=== PATIENT | male | born 1985 | race Caucasian/White ===

== ENCOUNTER 2022-08-08 16:46 | Emergency (ER) | payer SELFPAY ==
[2022-08-08 16:50] VITALS: BMI 26.2
[2022-08-08 16:53] VITALS: BP 126/78; PULSE 111; RESP 18; TEMP 37.9; O2SAT 100
--- NOTE | 2022-08-08 17:35 | USR_ITS ---
PROCEDURE INFORMATION: Exam: US Duplex Right Upper Extremity Veins, Limited Exam date and time: 08/08/2022 6:08 PM Age: 37 years old Clinical indication: Pain; Arm, lower; Right; Additional info: Redness swelling TECHNIQUE: Imaging protocol: Real-time duplex ultrasound of the Right Upper Extremity with 2-D henning scale, color Doppler flow and spectral waveform analysis with image documentation. Limited exam focused on the right upper extremity veins. COMPARISON: US soft tissue/extremity [id number] 08/08/2022 6:01 PM FINDINGS: Right deep veins: Unremarkable. Axillary and brachial veins are patent throughout without thrombus. Normal Doppler waveforms. Normal compressibility and/or augmentation response. Visualized internal jugular and subclavian veins are patent. Right superficial veins: Unremarkable. Visualized cephalic and basilic veins are patent without thrombus. Soft tissues: Unremarkable. US/[place] [id number] IMPRESSION: No evidence of deep vein thrombosis.
--- NOTE | 2022-08-08 17:43 | W.ED.EXTPRO ---
HPI - Extremity Problem General: Chief complaint: Extremity Problem,Nontraumatic Stated complaint: Right arm swelling Time Seen by Provider: 08/08/22 17:42 History of Present Illness: Patient comes in for swelling and pain to the right forearm. Patient appears in mild to moderate pain. Patient appears nontoxic. Patient reports that approximately 2 to 3 weeks ago he was seen at a emergency department in [place] and treated for cellulitis in that arm. With Bactrim DS. Patient reports that he had taken the antibiotic for about 10 days and it had almost fully recovered and patient felt that he should be able to resolve on its own. Patient comes in today due to increasing swelling and pain over the last week. Patient does admit to IV drug use. Associated symptoms: Reports fever(s); Deny chest pain Review of Systems Const: Reports: fever(s) and malaise Eyes: Denies: change in vision ENMT: Denies: throat pain Card: Denies: chest pain Resp: Denies: dyspnea GI: Denies: nausea or vomiting Musc: Reports: extremity pain and extremity swelling Physical Exam Const: COMMON NORMALS: alert HENMT: COMMON NORMALS: normocephalic and Normal external nose present HEAD & SCALP: normocephalic NOSE: Normal external nose present Neck/C-Spine: COMMON NORMALS: full ROM and no meningeal signs Resp: COMMON NORMALS: normal respiratory effort and clear to auscultation bilaterally AUSCULTATION: clear to auscultation bilaterally Cardio: COMMON NORMALS: regular rhythm RATE: tachycardic (Mild in the 110s) RHYTHM: regular rhythm GI: COMMON NORMALS: Soft to palpation and non-tender PALPATION: Yes Soft to palpation Extremity: RIGHT UPPER EXTREMITY: Yes lower arm (Significant swelling and tenderness to the right forearm) Neuro: SENSORIUM/ORIENTATION: Yes alert MENINGEAL SIGNS: Yes no meningeal signs Skin: COMMON NORMALS: turgor normal GENERAL SKIN EXAM: turgor normal Procedures Abscess I/D Site: upper extremity Side (if applicable): right Local Anesthetic: lidocaine 1% and with epi Amount of anesthesia used (mL): 4 Technique: incised with #11 blade Amount of fluid expressed (mL): 30 Irrigation: Yes Packing used?: plain (8 cm quarter inch gauze for wick) Course Vital Signs: Vital signs: Vital Signs Temperature 98.4 F 08/08/22 20:07 Pulse Rate 90 08/08/22 20:15 Respiratory Rate 16 08/08/22 20:15 Blood Pressure 120/73 08/08/22 20:15 Pulse Oximetry 98 08/08/22 20:15 Oxygen Delivery Me thod 08/08/22 20:07 MDM - Extremity (Nontraumatic) Medical Decision Making 37-year-old male patient comes in today with abscess to the right forearm. Patient has had abscess in his wrist on the same arm and in the elbow of the same arm. Patient admits to IV drug use. Patient appears nontoxic. Patient does have a mild temperature of 100.2 with some elevation in pulse at 111. Vital signs otherwise are normal. Erythema and redness is localized to the posterior aspect of the forearm with no full circumferential swelling or redness. Differential diagnosis includes cellulitis, abscess, DVT, sepsis. No signs of serious illness as noted. Ultrasound did not indicate DVT but did note a 5 cm linear abscess. Under local anesthetic and medications for pain a 3 cm incision was made and a good result of purulent drainage from the abscess. Abscess was then irrigated. Patient was treated with vancomycin and clindamycin in the ER. Patient will be continued with Bactrim DS and clindamycin for outpatient treatment. Encourage plenty of fluids acetaminophen ibuprofen for pain warm packs for further pain relief. Patient was given some fentanyl and Toradol in the ER for his pain. Lab Data 08/08/22 17:50 08/08/22 17:50 Radiology Impressions Venous Duplex 08/08/22 17:35 IMPRESSION: No evidence of deep vein thrombosis. Soft Tissue Ultrasound 08/08/22 17:51 IMPRESSION: 1. 5.6 cm inhomogenous fluid collection in the posterior distal forearm. This could represent a hematoma or abscess. Follow-up with cross-sectional imaging with IV contrast is suggested. Laboratory Results WBC 20.6 10^3/uL (4.0-10.0) H 08/08/22 17:50 RBC 5.06 10^6/uL (4.1-5.3) 08/08/22 17:50 Hgb 15.0 g/dL (11.7-16.6) 08/08/22 17:50 Hct 45.8 % (42.0-52.0) 08/08/22 17:50 MCV 90.5 fl (80-94) 08/08/22 17:50 MCH 29.6 pg (28.0-34.0) 08/08/22 17:50 MCHC 32.8 g/dL (30.0-36.0) 08/08/22 17:50 RDW 11.8 % (12.1-15.1) L 08/08/22 17:50 Plt Count 549 10^3/cmm (130-400) H 08/08/22 17:50 MPV 9.2 fL (7.4-10.4) 08/08/22 17:50 Neut % (Auto) 86.6 % 08/08/22 17:50 Lymph % (Auto) 9.7 % 08/08/22 17:50 [place] % (Auto) 3.2 % 08/08/22 17:50 Eos % (Auto) 0.0 % 08/08/22 17:50 Baso % (Auto) 0.1 % 08/08/22 17:50 Neut # (Auto) 17.78 10^3/uL (1.8-7.7) H 08/08/22 17:50 Lymph # (Auto) 2.0 10^3/uL (0.8-4.8) 08/08/22 17:50 [place] # (Auto) 0.7 10^3/uL (0.2-0.9) 08/08/22 17:50 Eos # (Auto) 0.0 10^3/uL (0.0-0.8) 08/08/22 17:50 Baso # (Auto) 0.0 10^3/uL (0.0-0.1) 08/08/22 17:50 Nucleated RBC % (auto) 0 % 08/08/22 17:50 Nucleated RBCs # 0.0 /100WBC 08/08/22 17:50 Sodium 134 mmol/L (136-145) L 08/08/22 17:50 Potassium 3.3 mmol/L (3.5-5.1) L 08/08/22 17:50 Chloride 94 mmol/L (98-107) L 08/08/22 17:50 Carbon Dioxide 26 mmol/L (22-29) 08/08/22 17:50 Anion Gap 17.3 (5-19) 08/08/22 17:50 BUN 9 mg/dL (6-20) 08/08/22 17:50 Creatinine 0.8 mg/dL (0.7-1.2) 08/08/22 17:50 GFR Calculation 110.0 mL/min (90-130) 08/08/22 17:50 Glucose 185 mg/dL (65-115) H 08/08/22 17:50 Calculated Osmolality 281 mOsm/kg (285-295) L 08/08/22 17:50 Lactic Acid 2.3 mmol/L (0.5-2.2) H 08/08/22 17:50 Calcium 9.9 mg/dL (8.5-10.5) 08/08/22 17:50 Total Bilirubin 0.6 mg/dL (0.15-1.2) 08/08/22 17:50 AST 15 U/L (0-40) 08/08/22 17:50 ALT 17 U/L (0-41) 08/08/22 17:50 Alkaline Phosphatase 78 U/L (40-130) 08/08/22 17:50 C-Reactive Protein 125.0 mg/L (0.0-4.9) H 08/08/22 17:50 Total Protein 8.4 g/dL (6.6-8.7) 08/08/22 17:50 Albumin 4.2 g/dL (3.5-5.2) 08/08/22 17:50 Globulin 4.2 g/dL (1.3-4.6) 08/08/22 17:50 Discharge Plan Discharge Patient Disposition: Home Clinical Impression: Abscess of forearm, right Condition: Stable Prescriptions: New Bactrim DS 800-160 mg tablet 1 tab PO DAILY 7 Days Qty: 14 0RF clindamycin HCl 300 mg capsule 600 mg PO TID 7 Days Qty: 42 0RF Discharge Orders: Discharge ED (Routine); Ordered 08/08/22 Ordered By: Rod Kenny Discharge Diet: Usual diet Discharge Activity: Increase activity as tolerated Patient Instructions: Abscess Incision and Drainage (DC) Activity Restrictions/Additional Instructions: Home and rest. Drink plenty of water with medication. Take sulfa trimethoprim 1 tablet twice daily for 7 days. Take clindamycin 300 mg 2 capsules 3 times a day for the next 7 days. Use acetaminophen and ibuprofen for pain. Use ice or heat for further pain relief. Activity as tolerated. Patient was given IV vancomycin and clindamycin in the emergency department. Patient was treated for pain with 100 mcg of fentanyl and 15 mg of ketorolac. An incision and drainage was performed in the ER with good results of purulent drainage. Patient was continued with clindamycin and Bactrim DS for antibiotics on outpatient use. Patient should follow-up with primary care in 2 to 3 days for recheck, patient return to the ER for high fever greater than 100.4, inability to hold fluids down, or increasing swelling and redness to the extremity. Coding Level of Care Code ED Technology Officer for Jayme Wolf
--- NOTE | 2022-08-08 17:51 | USR_ITS ---
PROCEDURE INFORMATION: Exam: US Right Non-Vascular Joint or Other Extremity Structure Exam date and time: 08/08/2022 6:01 PM Age: 37 years old Clinical indication: Pain; Upper arm; Right; Swelling; Arm, upper; Additional info: R/O abscess TECHNIQUE: Imaging protocol: Right US joint or other nonvascular extremity structure or structures. Real-time ultrasound with image documentation. Limited study. Exam focused on the upper extremity in the region of clinical interest. COMPARISON: No relevant prior studies available. FINDINGS: Soft tissues: Targeted evaluation of the posterior distal forearm, overlying the ulna. In the subcutaneous soft tissues there is an inhomogenous fluid collection with surrounding vascularity measuring 5.5 x 1.4 x 5.6 cm. US/US soft tissue/extremity [id number] IMPRESSION: 1. 5.6 cm inhomogenous fluid collection in the posterior distal forearm. This could represent a hematoma or abscess. Follow-up with cross-sectional imaging with IV contrast is suggested.
[2022-08-08] MEDS: ketorolac 30 mg/mL INJ 15 MG IVP (18:00)
[2022-08-08 18:06] LABS: Basophils % 0.1 %; Hematocrit 45.8 % (42.0-52.0); Lymphocytes % 9.7 %; Mean Corpuscular HGB Conc 32.8 g/dL (30.0-36.0); Mean Corpuscular Hemoglobin 29.6 pg (28.0-34.0); Mean Corpuscular Volume 90.5 fl (80-94); Mean Platelet Volume 9.2 fL (7.4-10.4); Monocytes # 0.7 10^3/uL (0.2-0.9); Monocytes % 3.2 %; Neutrophils # 17.78 10^3/uL (1.8-7.7); Neutrophils % 86.6 %; Nucleated Red Blood Cells % 0 %; Platelet Count 549 10^3/cmm (130-400); Red Blood Count 5.06 10^6/uL (4.1-5.3); Red Cell Distribution Width 11.8 % (12.1-15.1); White Blood Count 20.6 10^3/uL (4.0-10.0)
[2022-08-08 18:27] LABS: Lactic Sepsis W/Reflex 2.3 mmol/L (0.5-2.2)
[2022-08-08 18:28] LABS: Alanine Aminotransferase 17 U/L (0-41); Albumin Level 4.2 g/dL (3.5-5.2); Alkaline Phosphatase 78 U/L (40-130); Anion Gap 17.3 (5-19); Aspartate Amino Transferase 15 U/L (0-40); Blood Urea Nitrogen 9 mg/dL (6-20); Calcium 9.9 mg/dL (8.5-10.5); Carbon Dioxide 26 mmol/L (22-29); Chloride 94 mmol/L (98-107); Globulin 4.2 g/dL (1.3-4.6); Glucose 185 mg/dL (65-115); Osmolality Calculated 281 mOsm/kg (285-295); Potassium 3.3 mmol/L (3.5-5.1); Sodium 134 mmol/L (136-145); Total Bilirubin 0.6 mg/dL (0.15-1.2); Total Protein 8.4 g/dL (6.6-8.7)
[2022-08-08] MEDS: clindamycin 600 MG/50 ML PREMIX 100 MG IV (18:33)
[2022-08-08] MEDS: sodium chloride 0.9% 1,000 ML 999 ML IV (18:48)
[2022-08-08 19:01] VITALS: RESP 16; O2SAT 98
[2022-08-08] MEDS: fentaNYL 50 mcg/mL INJ 2mL 100 MCG IVP (19:01)
[2022-08-08] MEDS: vancomycin 1,000 MG in sodium chloride 0.9% 250 ML 250 MG IV (19:04)
[2022-08-08 19:22] VITALS: BP 132/81; PULSE 95; RESP 16; O2SAT 98
[2022-08-08 19:49] LABS: Reflex Lactate Order REFLEX LACTIC ORDERD
[2022-08-08 20:07] VITALS: BP 120/73; PULSE 88; TEMP 36.9; O2SAT 99
[2022-08-08 20:15] VITALS: BP 120/73; PULSE 90; RESP 16; O2SAT 98
== END 2022-08-08 20:28 | disposition home or self-care (01) ==
PROVIDERS: Emergency Provider Nurse Practitioner Family
DX: L02.413 Cutaneous abscess of right upper limb (principal)
CPT/HCPCS: 10060; 76882; 80053; 83605; 85025; 86140; 87040; 93971; 96365; 96367; 96375; 99285; J1885; J3010; J3370; J3490; J7030; J7050

== ENCOUNTER 2023-11-04 18:56 | Emergency (ER) | payer SELFPAY ==
[2023-11-04 19:05] VITALS: BP 146/86; PULSE 94; RESP 20; TEMP 36.6; O2SAT 94; BMI 19.5
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
--- NOTE | 2023-11-04 19:32 | PC.NURSE ---
this nurse took a phone call from pts mom, Allison, who is not on pts contact list. this nurse asked pt if he was okay with his information being shared with her and pt gave this nurse verbal permission. mergers and acquisitions banker, Ashley, was in the room when this nurse verified this with pt. Allison stated she would call back for more information after pts tests were done.
[2023-11-04 21:03] VITALS: BP 138/84; PULSE 89; RESP 16; TEMP 36.6; O2SAT 95
== END 2023-11-04 21:04 | disposition home or self-care (01) ==
PROVIDERS: Emergency Provider Physician Assistant
DX: S93.402A Sprain of unspecified ligament of left ankle, initial encounter (principal); S90.812A Abrasion, left foot, initial encounter; S90.811A Abrasion, right foot, initial encounter; V29.99XA Rider (driver) (passenger) of other motorcycle injured in unspecified traffic accident, initial encounter
CPT/HCPCS: 73610; 73630; 99284; E0114